=== PATIENT | male | born 2000 | race African-American/Black ===

== ENCOUNTER 2021-10-19 06:31 | Emergency (ER) | payer SELFPAY ==
[2021-10-19] MEDS ORDERED: Amoxicillin/Clavulanate K 875-125 MG Tab PO ONE (07:09)
[2021-10-19] MEDS ORDERED: Acetaminophen/oxyCODONE 325-5 MG Tab PO ONE (07:09)
[2021-10-19] MEDS ORDERED: Ondansetron 4 MG Tab.DIS PO ONE (07:09)
== END 2021-10-19 07:44 | disposition home or self-care (01) ==
LOC: JD.ED 06:31
DX: H66.001 Acute suppurative otitis media without spontaneous rupture of ear drum, right ear (principal)
CPT/HCPCS: 99282; A9270

== ENCOUNTER 2021-10-19 17:27 | Emergency (ER) | payer SELFPAY | END 2021-10-19 18:41 | disposition home or self-care (01) | LOC: JD.ED 17:27 | DX: H66.93 Otitis media, unspecified, bilateral (principal); E66.9 Obesity, unspecified; Z68.38 Body mass index [BMI] 38.0-38.9, adult; Z79.899 Other long term (current) drug therapy | CPT/HCPCS: 99282 ==